=== PATIENT | male | born 1950 | race Caucasian/White ===

== ENCOUNTER 2016-10-27 05:08 | Observation (INO) | payer OTHER ==
[~2016-10-27] VITALS: Ht 180.3 cm; Wt 102.6 kg
[~2016-10-27 05:08] MED LIST: ADULT LOW DOSE81 M1 PO; AGGRENOX1 CAPSULE PO; ALLOPURINOL100 MG PO; ASPIR 8181 M1 PO; ASPIRIN325 MG PO; ATIVAN0.5 MG PO; ATIVAN1 MG PO; Aggrenox PO; Aspirin E.C. PO; Ativan PO; BABY ASPIRIN81 M1 PO; CETIRIZINE HCL10 M2 PO; CLEOCIN150 MG PO; CLINDAMYCIN HC300 MG PO; COMBIVENT INH14.7 GM IH; Cleocin PO; Combivent IH; DICLOFENAC SODI50 MG PO; EFFEXOR XR150 MG PO; EFFEXOR XR75 MG PO; EFFEXOR75 MG PO; ENDOCET 5-3251 EACH PO; ENDOCET 7.5-321 EACH PO; FLEXERIL10 MG PO; FLONASE16 G1 BOTH NARES; GABAPENTIN300 MG PO; GEMFIBROZIL600 MG PO; GLUCOPHAGE500 MG PO; HUMALOG MI100 UNIT/6 SC; IMDUR30 MG PO; ISORDIL,SORBITR20 MG PO; ISOSORBIDE DINI30 MG PO; ISOSORBIDE PO; LISINOPRIL20 MG PO; LOPRESSOR25 MG PO; LORAZEPAM1 MG PO; LYRICA75 MG PO; Lopressor PO; MEDROL DOSEPAK4 MG PO; METOPROLOL SUCC25 MG PO; METOPROLOL TART25 MG PO; MUPIROCIN22 GM TP; Medrol Dosepak PO; Methadone PO; NEURONTIN300 MG PO; OXYCODONE HCL5 MG PO; OXYCONTIN30 MG PO; OxyCONTIN PO; PERCOCET 10-321 EACH PO; PERCOCET 10/1 TABLET PO; PERCOCET 5/31 TABLET PO; PERCOCET 7.51 TABLET PO; PRAVASTATIN SOD40 MG PO; PREDNISONE20 MG PO; PRINIVIL20 MG PO; Proventil,Ventolin H IH; REGLAN10 MG PO; RITALIN20 MG PO; SIMVASTATIN5 MG PO; TESSALON PERLE100 MG PO; TOPROL XL25 MG PO; TOPROL XL50 MG PO; TRILIPIX135 MG PO; Tessalon Perle PO; Toprol XL PO; ULTRAM50 MG PO; VENLAFAXINE HCL75 M1 PO; VENLAFAXINE HCL75 M2 PO; VENTOLIN HFA18 GM IH; ZESTRIL,PRINIVI10 M1 PO; ZESTRIL,PRINIVI20 MG PO; ZESTRIL20 MG PO; ZITHROMAX250 MG PO; ZOCOR20 MG PO; ZOCOR40 MG PO; ZOFRAN4 MG PO; Zestril,Prinivil PO; Zocor PO; Zyloprim PO; [UNRECOGNIZED DRUG - OTHER] PO
[2016-10-27 05:49] LABS: HEMATOCRIT 33.1 % (38.0-50.0); MCH 30.7 PG (29.0-34.0); MCHC 34.7 G/DL (30.0-36.0); MCV 88.3 FL (86-99); MEAN PLAT.VOLUME 11.2 uM^3 (9.0-12.4); PLATELET COUNT 160 K/uL (156-360); RBC DIS.WIDTH-CV 12.7 % (11.8-14.6); RBC DIS.WIDTH-SD 38.5 % (39-53); RED BLOOD COUNT 3.75 M/uL (4.00-5.50); WHITE BLOOD COUNT 4.6 K/uL (4.1-10.2)
[2016-10-27 06:00] LABS: CHLORIDE 105 mEq/L (99-109); SODIUM 140 mEq/L (136-147)
[2016-10-27 06:01] LABS: GLUCOSE 186 mg/dL (70-99)
[2016-10-27 06:03] LABS: ANION GAP 10 MEQ/L (2-14)
[2016-10-27 06:05] LABS: GFR ESTIMATE (CALCULATED) > 59 mL/min/
[2016-10-27 06:06] LABS: UREA NITROGEN (BUN) 21 mg/dL (9-23)
[2016-10-27 06:09] LABS: TROP-I INTERPRETATION NEGATIVE; TROPONIN-I < 0.01 ng/mL (0.0-0.30)
[2016-10-27] MEDS ORDERED: METOPROLOL SUCC50 MG PO (07:28)
[2016-10-27] MEDS ORDERED: KADIAN10 MG PO (07:30)
[2016-10-27 08:40] LABS: D-DIMER ELISA 0.21 mg/L FEU (< 0.57)
[2016-10-27 08:55] LABS: Estimated Average Glucose 163 mg/dL (70-123); HEMOGLOBIN A1c (GLYCOHEMOGLOB) 7.3 % HGB (Below 5.7)
[2016-10-27 11:45] LABS: POINT-OF-CARE METER ID UU14100415
[2016-10-27 13:07] LABS: TROP-I INTERPRETATION NEGATIVE; TROPONIN-I 0.01 ng/mL (0.0-0.30)
[2016-10-27 14:54] VITALS: BP 164/83
[2016-10-27 18:11] LABS: POINT-OF-CARE METER ID UU14162513
[2016-10-27 19:17] LABS: TROP-I INTERPRETATION NEGATIVE; TROPONIN-I < 0.01 ng/mL (0.0-0.30)
[2016-10-27 20:00] VITALS: BP 150/83
[2016-10-27 22:24] LABS: POINT-OF-CARE METER ID UU13113831
[2016-10-28 00:11] VITALS: BP 134/64
[2016-10-28 04:15] VITALS: BP 102/56
[2016-10-28 06:45] LABS: HEMATOCRIT 35.8 % (38.0-50.0); MCH 30.3 PG (29.0-34.0); MCHC 33.8 G/DL (30.0-36.0); MCV 89.7 FL (86-99); MEAN PLAT.VOLUME 11.9 uM^3 (9.0-12.4); PLATELET COUNT 177 K/uL (156-360); RBC DIS.WIDTH-CV 13.1 % (11.8-14.6); RBC DIS.WIDTH-SD 42.6 % (39-53); RED BLOOD COUNT 3.99 M/uL (4.00-5.50); WHITE BLOOD COUNT 5.3 K/uL (4.1-10.2)
[2016-10-28 06:58] LABS: PROTHROMBIN TIME 10.5 (9.2-11.2)
[2016-10-28 07:08] LABS: ANION GAP 8 MEQ/L (2-14); CHLORIDE 105 MEQ/L (99-109); GFR ESTIMATE (CALCULATED) > 59 mL/min/; GLUCOSE 153 mg/dL (70-99); POTASSIUM 4.5 MEQ/L (3.7-5.4); SAMPLE HEMOLYSIS CHECK 0; SAMPLE ICTERIC CHECK 0; SAMPLE LIPEMIA CHECK 0; SODIUM 139 MEQ/L (136-147); UREA NITROGEN (BUN) 21 mg/dL (9-23)
[2016-10-28 12:36] VITALS: BP 95/57
[2016-10-28 12:56] LABS: POINT-OF-CARE METER ID UU13113831
== END 2016-10-28 14:35 | disposition home or self-care (01) ==
LOC: EME 05:08 → EDOF 07:25 → 5WEST 14:31
PROVIDERS: Emergency Medicine; Internal Medicine; Nurse Practitioner Adult Health
DX: R07.9 Chest pain, unspecified (principal); R94.31 Abnormal electrocardiogram [ECG] [EKG]; E11.9 Type 2 diabetes mellitus without complications; I25.10 Atherosclerotic heart disease of native coronary artery without angina pectoris; Z86.73 Personal history of transient ischemic attack (TIA), and cerebral infarction without residual deficits; J45.909 Unspecified asthma, uncomplicated; J44.9 Chronic obstructive pulmonary disease, unspecified; M19.90 Unspecified osteoarthritis, unspecified site; M10.9 Gout, unspecified; G89.29 Other chronic pain; I11.9 Hypertensive heart disease without heart failure; F41.9 Anxiety disorder, unspecified; Z91.19 Patient's noncompliance with other medical treatment and regimen; R06.02 Shortness of breath; R42 Dizziness and giddiness; Z88.0 Allergy status to penicillin; Z88.6 Allergy status to analgesic agent; Z79.4 Long term (current) use of insulin; Z79.82 Long term (current) use of aspirin; Z87.891 Personal history of nicotine dependence
CPT/HCPCS: 71020; 80048; 82948; 83036; 83880; 84484; 85027; 85379; 85610; 93005; 99202; 99281; 99285; G0378; J1815; J2060; J2270; J7030

== ENCOUNTER 2016-12-07 19:50 | Emergency (ER) | payer OTHER ==
[~2016-12-07] VITALS: Ht 180.3 cm; Wt 103.6 kg
[~2016-12-07 19:50] MED LIST changes: +KADIAN10 MG PO; +METOPROLOL SUCC50 MG PO
[2016-12-07] MEDS ORDERED: BACTRIM,SEPT1 TABLET PO (21:04)
[2016-12-07] MEDS ORDERED: PERCOCET 5/31 TABLET PO (21:05)
[2016-12-07 21:51] VITALS: BP 143/89
== END 2016-12-07 21:57 | disposition home or self-care (01) ==
LOC: EME 19:50 → EXP 19:50
DX: L02.31 Cutaneous abscess of buttock (principal); I25.2 Old myocardial infarction; J45.909 Unspecified asthma, uncomplicated; G89.29 Other chronic pain; J44.9 Chronic obstructive pulmonary disease, unspecified; I10 Essential (primary) hypertension; K21.9 Gastro-esophageal reflux disease without esophagitis; Z86.73 Personal history of transient ischemic attack (TIA), and cerebral infarction without residual deficits; I25.10 Atherosclerotic heart disease of native coronary artery without angina pectoris; Z98.61 Coronary angioplasty status; Z79.82 Long term (current) use of aspirin; Z79.891 Long term (current) use of opiate analgesic
CPT/HCPCS: 99281; 99284

== ENCOUNTER 2017-03-15 01:40 | Emergency (ER) | payer OTHER ==
[~2017-03-15] VITALS: Ht 180.3 cm; Wt 103.7 kg
[~2017-03-15 01:40] MED LIST changes: +BACTRIM,SEPT1 TABLET PO
[2017-03-15] MEDS ORDERED: ATIVAN0.5 MG PO (02:09)
[2017-03-15 02:26] VITALS: BP 148/80
== END 2017-03-15 02:27 | disposition home or self-care (01) ==
LOC: EME 01:40
DX: F41.9 Anxiety disorder, unspecified (principal); S93.401A Sprain of unspecified ligament of right ankle, initial encounter; T42.4X6A Underdosing of benzodiazepines, initial encounter; Z91.128 Patient's intentional underdosing of medication regimen for other reason; I25.2 Old myocardial infarction; J44.9 Chronic obstructive pulmonary disease, unspecified; F32.9 Major depressive disorder, single episode, unspecified; Z86.73 Personal history of transient ischemic attack (TIA), and cerebral infarction without residual deficits; Z88.0 Allergy status to penicillin; Z88.6 Allergy status to analgesic agent; Z87.891 Personal history of nicotine dependence
CPT/HCPCS: 99281; 99284

== ENCOUNTER 2017-07-12 16:01 | Emergency (ER) | payer OTHER ==
[~2017-07-12] VITALS: Ht 177.8 cm; Wt 101.5 kg
[2017-07-12 17:57] LABS: HEMATOCRIT 32.6 % (38.0-50.0); MCH 30.8 PG (29.0-34.0); MCV 90.6 FL (86-99); MEAN PLAT.VOLUME 10.9 uM^3 (9.0-12.4); PLATELET COUNT 172 K/uL (156-360); RBC DIS.WIDTH-CV 12.5 % (11.8-14.6); RBC DIS.WIDTH-SD 41.6 % (39-53); WHITE BLOOD COUNT 7.2 K/uL (4.1-10.2)
[2017-07-12 18:05] LABS: CHLORIDE 106 mEq/L (99-109); POTASSIUM 4.2 mEq/L (3.7-5.4); SODIUM 140 mEq/L (136-147)
[2017-07-12 18:07] LABS: GLUCOSE 181 mg/dL (70-99)
[2017-07-12 18:09] LABS: ANION GAP 10 MEQ/L (2-14); TOTAL BILIRUBIN 0.3 mg/dL (0.0-1.0)
[2017-07-12 18:11] LABS: ALKALINE PHOSPHATASE 71 IU/L (3-129); GFR ESTIMATE (CALCULATED) > 59 mL/min/
[2017-07-12 18:12] LABS: UREA NITROGEN (BUN) 10 mg/dL (9-23)
[2017-07-12 18:14] LABS: LIPASE 35 U/L (1.0-51.0)
[2017-07-12 19:26] VITALS: BP 139/82
== END 2017-07-12 19:27 | disposition home or self-care (01) ==
LOC: EME 16:01
PROVIDERS: Nurse Practitioner Family
DX: S20.211A Contusion of right front wall of thorax, initial encounter (principal); S30.1XXA Contusion of abdominal wall, initial encounter; W17.89XA Other fall from one level to another, initial encounter; Y93.E9 Activity, other interior property and clothing maintenance; Y92.002 Bathroom of unspecified non-institutional (private) residence as the place of occurrence of the external cause; R19.7 Diarrhea, unspecified; R06.02 Shortness of breath; K42.9 Umbilical hernia without obstruction or gangrene; K57.30 Diverticulosis of large intestine without perforation or abscess without bleeding; I71.2 Thoracic aortic aneurysm, without rupture; I10 Essential (primary) hypertension; J44.9 Chronic obstructive pulmonary disease, unspecified; Z79.82 Long term (current) use of aspirin; Z87.891 Personal history of nicotine dependence
CPT/HCPCS: 71260; 74177; 80053; 83690; 85027; 99281; 99285; J2405; J3010; J7030

== ENCOUNTER 2018-02-24 14:09 | Inpatient (IN) | payer OTHER ==
[~2018-02-24] VITALS: Ht 180.3 cm; Wt 97.2 kg
[2018-02-24 15:17] LABS: HEMATOCRIT 34.2 % (38.0-50.0); HEMOGLOBIN 12.2 G/DL (12.5-16.6); MCHC 35.7 G/DL (30.0-36.0); PLATELET COUNT 181 K/uL (156-360); RBC DIS.WIDTH-SD 38.4 % (39-53); RED BLOOD COUNT 3.93 M/uL (4.00-5.50); WHITE BLOOD COUNT 10.9 K/uL (4.1-10.2)
[2018-02-24 15:25] LABS: ALBUMIN 4.3 g/dL (3.2-4.8); CHLORIDE 100 mEq/L (99-109); POTASSIUM 4.1 mEq/L (3.7-5.4); SODIUM 137 mEq/L (136-147)
[2018-02-24 15:28] LABS: GLUCOSE 179 mg/dL (70-99); TOTAL PROTEIN 7.7 g/dL (6.4-8.3)
[2018-02-24 15:30] LABS: TOTAL BILIRUBIN 0.7 mg/dL (0.0-1.0)
[2018-02-24 15:31] LABS: ALKALINE PHOSPHATASE 80 IU/L (3-129); CREATININE 1.1 mg/dL (0.6-1.3); GFR ESTIMATE (CALCULATED) > 59 mL/min/ (58.99-99999)
[2018-02-24 15:32] LABS: UREA NITROGEN (BUN) 14 mg/dL (9-23)
[2018-02-24 15:33] LABS: AST (GOT) 11 IU/L (2-34)
[2018-02-24 15:34] LABS: ALT (GPT) 12 IU/L (3-49)
[2018-02-24 15:35] LABS: LIPASE 22 U/L (1.0-51.0)
[2018-02-24 20:02] LABS: HEMATOCRIT 32.5 % (38.0-50.0); HEMOGLOBIN 11.5 G/DL (12.5-16.6); MCH 31.2 PG (29.0-34.0); MCHC 35.4 G/DL (30.0-36.0); MCV 88.1 FL (86-99); PLATELET COUNT 177 K/uL (156-360); RBC DIS.WIDTH-CV 12.1 % (11.8-14.6); RBC DIS.WIDTH-SD 38.5 % (39-53); RED BLOOD COUNT 3.69 M/uL (4.00-5.50); WHITE BLOOD COUNT 10.6 K/uL (4.1-10.2)
[2018-02-24 22:02] LABS: STOOL OCCULT BLD 1ST SPECIMEN POSITIVE; STOOL OCCULT BLD 3RD SPECIMEN ND
[2018-02-24 22:03] LABS: STOOL OCCULT BLD 2ND SPECIMEN ND
[2018-02-24 22:26] LABS: C DIFF TOXIN NEGATIVE (NEGATIVE)
[2018-02-24] MEDS ORDERED: OXYCODONE-APAP1 EACH PO (22:48)
[2018-02-24] MEDS ORDERED: LORAZEPAM0.5 MG PO (22:49)
[2018-02-24] MEDS ORDERED: FLUTICASONE PRO16 GM BOTH NARES (22:50)
[2018-02-24 23:38] VITALS: BP 170/79
[2018-02-25 06:08] LABS: BASOPHIL (%) 0.3 % (0-1); EOSINOPHIL COUNT 0.2 K/uL (0-0.3); HEMOGLOBIN 10.8 G/DL (12.5-16.6); IMMATURE GRANULOCYTE (%) 0.3 % (0.0-0.7); LYMPHOCYTE COUNT 2.1 K/uL (1.0-2.8); MCH 30.2 PG (29.0-34.0); MCHC 33.8 G/DL (30.0-36.0); MCV 89.4 FL (86-99); MONOCYTE (%) 7.5 % (3-12); MONOCYTE COUNT 0.7 K/uL (0-0.8); NEUTROPHIL (%) 67.9 % (45-76); NEUTROPHIL COUNT 6.4 K/uL (1.8-6.4); PLATELET COUNT 171 K/uL (156-360); RBC DIS.WIDTH-CV 12.2 % (11.8-14.6); RBC DIS.WIDTH-SD 39.8 % (39-53); RED BLOOD COUNT 3.58 M/uL (4.00-5.50); WHITE BLOOD COUNT 9.5 K/uL (4.1-10.2)
[2018-02-25 06:24] LABS: CHLORIDE 103 MEQ/L (99-109); GFR ESTIMATE (CALCULATED) > 59 mL/min/ (58.99-99999); GLUCOSE 157 mg/dL (70-99); POTASSIUM 3.9 MEQ/L (3.7-5.4); SODIUM 138 MEQ/L (136-147); UREA NITROGEN (BUN) 13 mg/dL (9-23)
[2018-02-25 07:48] VITALS: BP 140/82
[2018-02-25 09:17] LABS: APPEARANCE CLEAR ((CLEAR)); BILIRUBIN NEGATIVE; BLOOD NEGATIVE; COLOR STRAW ((YELLOW)); GLUCOSE (STRIP) 50; KETONES NEGATIVE; LEUKOCYTES NEGATIVE; NITRITE NEGATIVE; PROTEIN (STRIP) NEGATIVE; SPECIFIC GRAVITY 1.006 (1.000-1.030); UCUL ADDED? NO; UROBILINOGEN 0.2 MG/DL (0.2-1.0)
[2018-02-25 15:18] VITALS: BP 128/58
[2018-02-25 19:36] VITALS: BP 127/77
[2018-02-26] VITALS (8 sets, daily range): BP systolic 109–168; BP diastolic 63–78
[2018-02-26 00:33] LABS: HEMATOCRIT 27.9 % (38.0-50.0); HEMOGLOBIN 9.8 G/DL (12.5-16.6); MCH 31.3 PG (29.0-34.0); MCHC 35.1 G/DL (30.0-36.0); MCV 89.1 FL (86-99); PLATELET COUNT 141 K/uL (156-360); RBC DIS.WIDTH-CV 12.3 % (11.8-14.6); RBC DIS.WIDTH-SD 39.8 % (39-53); RED BLOOD COUNT 3.13 M/uL (4.00-5.50); WHITE BLOOD COUNT 7.8 K/uL (4.1-10.2)
[2018-02-26 05:49] LABS: HEMOGLOBIN 9.9 G/DL (12.5-16.6); MCH 30.6 PG (29.0-34.0); MCHC 34.1 G/DL (30.0-36.0); MCV 89.5 FL (86-99); NRBC (%) 0.3 /100 WBC (0-0); PLATELET COUNT 140 K/uL (156-360); RBC DIS.WIDTH-CV 12.4 % (11.8-14.6); RBC DIS.WIDTH-SD 40.4 % (39-53); RED BLOOD COUNT 3.24 M/uL (4.00-5.50); WHITE BLOOD COUNT 6.2 K/uL (4.1-10.2)
[2018-02-26 16:06] LABS: HEMATOCRIT 29.1 % (38.0-50.0); HEMOGLOBIN 9.9 G/DL (12.5-16.6); MCH 30.7 PG (29.0-34.0); MCV 90.4 FL (86-99); PLATELET COUNT 158 K/uL (156-360); RBC DIS.WIDTH-CV 12.3 % (11.8-14.6); RBC DIS.WIDTH-SD 40.2 % (39-53); RED BLOOD COUNT 3.22 M/uL (4.00-5.50); WHITE BLOOD COUNT 5.4 K/uL (4.1-10.2)
[2018-02-27 00:31] LABS: HEMATOCRIT 29.8 % (38.0-50.0); HEMOGLOBIN 10.6 G/DL (12.5-16.6); MCH 31.8 PG (29.0-34.0); MCHC 35.6 G/DL (30.0-36.0); MCV 89.5 FL (86-99); PLATELET COUNT 179 K/uL (156-360); RBC DIS.WIDTH-CV 12.3 % (11.8-14.6); RBC DIS.WIDTH-SD 39.8 % (39-53); RED BLOOD COUNT 3.33 M/uL (4.00-5.50); WHITE BLOOD COUNT 7.7 K/uL (4.1-10.2)
[2018-02-27 03:40] VITALS: BP 139/71
[2018-02-27 07:04] LABS: BASOPHIL (%) 0.5 % (0-1); EOSINOPHIL COUNT 0.4 K/uL (0-0.3); HEMATOCRIT 28.6 % (38.0-50.0); HEMOGLOBIN 9.7 G/DL (12.5-16.6); IMMATURE GRANULOCYTE (%) 0.3 % (0.0-0.7); LYMPHOCYTE (%) 44.2 % (15-42); LYMPHOCYTE COUNT 2.6 K/uL (1.0-2.8); MCH 30.4 PG (29.0-34.0); MCHC 33.9 G/DL (30.0-36.0); MCV 89.7 FL (86-99); MONOCYTE (%) 7.8 % (3-12); MONOCYTE COUNT 0.5 K/uL (0-0.8); NEUTROPHIL (%) 41.2 % (45-76); NEUTROPHIL COUNT 2.4 K/uL (1.8-6.4); PLATELET COUNT 158 K/uL (156-360); RBC DIS.WIDTH-CV 12.3 % (11.8-14.6); RBC DIS.WIDTH-SD 40.1 % (39-53); RED BLOOD COUNT 3.19 M/uL (4.00-5.50); WHITE BLOOD COUNT 5.9 K/uL (4.1-10.2)
[2018-02-27 07:27] LABS: ALBUMIN 3.5 G/DL (3.2-4.8); ALKALINE PHOSPHATASE 53 IU/L (3-129); ALT (GPT) 8 IU/L (3-49); AST (GOT) 10 IU/L (2-34); CHLORIDE 106 MEQ/L (99-109); CREATININE 1.1 MG/DL (0.6-1.3); GFR ESTIMATE (CALCULATED) > 59 mL/min/ (58.99-99999); GLUCOSE 109 mg/dL (70-99); POTASSIUM 3.9 MEQ/L (3.7-5.4); SODIUM 139 MEQ/L (136-147); TOTAL BILIRUBIN 0.3 MG/DL (0.0-1.0); TOTAL PROTEIN 5.8 G/DL (6.4-8.3); UREA NITROGEN (BUN) 10 mg/dL (9-23)
[2018-02-27 07:54] VITALS: BP 122/76
[2018-02-27 11:50] LABS: C-REACTIVE PROTEIN 12.2 MG/L (0-10)
[2018-02-27 11:53] LABS: ERTH.SED.RATE 49 MM/HR (0-20)
[2018-02-27 16:01] VITALS: BP 121/65
[2018-02-27 19:11] VITALS: BP 127/70
[2018-02-27 23:29] VITALS: BP 128/59
[2018-02-28 03:48] VITALS: BP 119/58
[2018-02-28 06:17] LABS: BASOPHIL (%) 0.6 % (0-1); EOSINOPHIL (%) 6.8 % (0-5); EOSINOPHIL COUNT 0.3 K/uL (0-0.3); HEMATOCRIT 29.3 % (38.0-50.0); HEMOGLOBIN 9.9 G/DL (12.5-16.6); IMMATURE GRANULOCYTE (%) 0.4 % (0.0-0.7); LYMPHOCYTE (%) 45.8 % (15-42); LYMPHOCYTE COUNT 2.3 K/uL (1.0-2.8); MCH 30.3 PG (29.0-34.0); MCHC 33.8 G/DL (30.0-36.0); MCV 89.6 FL (86-99); MONOCYTE COUNT 0.5 K/uL (0-0.8); NEUTROPHIL (%) 37.4 % (45-76); NEUTROPHIL COUNT 1.9 K/uL (1.8-6.4); PLATELET COUNT 158 K/uL (156-360); RBC DIS.WIDTH-CV 12.4 % (11.8-14.6); RBC DIS.WIDTH-SD 40.3 % (39-53); RED BLOOD COUNT 3.27 M/uL (4.00-5.50)
[2018-02-28 06:50] LABS: CHLORIDE 108 MEQ/L (99-109); CREATININE 1.1 MG/DL (0.6-1.3); GFR ESTIMATE (CALCULATED) > 59 mL/min/ (58.99-99999); GLUCOSE 102 mg/dL (70-99); POTASSIUM 3.9 MEQ/L (3.7-5.4); SODIUM 142 MEQ/L (136-147); UREA NITROGEN (BUN) 10 mg/dL (9-23)
[2018-02-28 07:16] VITALS: BP 161/76
[2018-02-28 11:58] VITALS: BP 141/73
[2018-02-28] MEDS ORDERED: AMLODIPINE BESYL5 MG PO (13:26)
[2018-02-28] MEDS ORDERED: CIPRO500 MG PO (13:27)
[2018-02-28] MEDS ORDERED: METRONIDAZOLE500 MG PO (13:27)
== END 2018-02-28 15:30 | disposition home or self-care (01) | DRG 373 ==
LOC: EME 14:09 → EDOF 20:49 → 5SOUTH 20:49 → ENRESERV 21:09 → 5SOUTH 22:40
PROVIDERS: Hospitalist; Internal Medicine; Physician Assistant
DX: A04.9 Bacterial intestinal infection, unspecified (principal); R00.1 Bradycardia, unspecified; I11.9 Hypertensive heart disease without heart failure; J44.9 Chronic obstructive pulmonary disease, unspecified; E78.5 Hyperlipidemia, unspecified; E11.9 Type 2 diabetes mellitus without complications; I25.10 Atherosclerotic heart disease of native coronary artery without angina pectoris; M19.90 Unspecified osteoarthritis, unspecified site; M10.9 Gout, unspecified; G89.29 Other chronic pain; G47.30 Sleep apnea, unspecified; I77.810 Thoracic aortic ectasia; I25.2 Old myocardial infarction; K21.9 Gastro-esophageal reflux disease without esophagitis; K64.4 Residual hemorrhoidal skin tags; F41.9 Anxiety disorder, unspecified; F32.9 Major depressive disorder, single episode, unspecified; M54.30 Sciatica, unspecified side; E66.9 Obesity, unspecified; Z68.29 Body mass index [BMI] 29.0-29.9, adult; Z86.73 Personal history of transient ischemic attack (TIA), and cerebral infarction without residual deficits; Z87.891 Personal history of nicotine dependence; Z91.19 Patient's noncompliance with other medical treatment and regimen; Z95.5 Presence of coronary angioplasty implant and graft; Z79.84 Long term (current) use of oral hypoglycemic drugs
CPT/HCPCS: 74177; 80048; 80053; 81003; 82272; 82948; 83630; 83690; 85025; 85027; 85651; 86140; 87040; 87046; 87177; 87493; 87506; 93005; 93306; 99281; 99285; J0360; J0744; J1170; J2405; J3010; J7030; S0028; S0030

== ENCOUNTER → 2018-03-05 | Outpatient (CLI) | payer OTHER ==
[~2018-03-05] MED LIST changes: +AMLODIPINE BESYL5 MG PO; +CIPRO500 MG PO; +FLUTICASONE PRO16 GM BOTH NARES; +LORAZEPAM0.5 MG PO; +METRONIDAZOLE500 MG PO; +OXYCODONE-APAP1 EACH PO
== END | disposition home or self-care (01) ==
LOC: NUC 03-04 06:30
DX: R94.39 Abnormal result of other cardiovascular function study (principal); R00.1 Bradycardia, unspecified
CPT/HCPCS: 78452; 93017; A9500; J2785